=== PATIENT | male | born 1945 | race Caucasian/White ===

== ENCOUNTER 2020-04-01 09:15 | Outpatient (CLI) | payer MEDICARE, SELFPAY ==
--- NOTE | ~2020-04-01 | NM_ITS ---
EXAMINATION: NM bone scan whole body DATE: 04/01/2020 12:56 INDICATION: Prostate cancer. TECHNIQUE: 23.4 mCi Tc-99m HDP was administered intravenously. Delayed whole-body scintigrams were o btained. COMPARISON: CT abdomen and pelvis 04/01/2020 FINDINGS: There is no abnormal focus of increased activity to suggest metastatic disease. IMPRESSION: 1. No evidence of metastatic disease. Reviewed, dictated and finalized at location A. E MAKER
--- NOTE | ~2020-04-01 | CT_ITS ---
EXAMINATION: CT abdomen pelvis w con INDICATION: Prostate cancer TECHNIQUE: Computed tomographic images of the abdomen and pelvis were obtained after the administrati on of 100 cc of Omnipaque 350 intravenous contrast. The dose-length product (DLP) was 794.23 mGy-cm. Automated exposure control and iterative reconstruction technique were employed. COMPARISON: None available FINDINGS: There is a 7 mm subpleural nodule of the left lower lobe on image 38. The heart size is nor mal. The gallbladder is surgically absent. Punctate calcifications in an otherwise normal spleen like ly represent healed granulomatous disease. The liver, pancreas, and adrenal glands are normal. Cysts of the left kidney measure up to 10 mm. The right kidney is unremarkable. There is calcified atherosc lerosis of the aorta and many of the other arteries. No pathologically enlarged abdominal or pelvic l ymph nodes are identified. There is no free intraperitoneal gas or evidence of bowel obstruction. The re is a surgical anastomosis at the rectosigmoid colon. The appendix is normal. A tiny fat-containing umbilical hernia is noted. There are bilateral L5 pars defects with grade 1 anterolisthesis of L5 on S1. IMPRESSION: 1. Indeterminate subpleural nodule of the left lower lobe. 2. No evidence of metastatic disease in the abdomen or pelvis. Reviewed, dictated and finalized at location A. BER HELPER
--- NOTE | ~2020-04-01 | XR_ITS ---
EXAMINATION: XR chest 2V 04/01/2020 09:39 INDICATION: Prostate cancer. PROCEDURE: 2 view chest COMPARISON: No prior studies for comparison. FINDINGS: The lungs are clear. The cardiomediastinal silhouette is within normal limits. There are no pleural effusions. There is no pneumothorax suspected. There is a prominent right nipple shadow right mid lung zone. There are cholecystectomy clips. IMPRESSION: 1: NO ACUTE CARDIOPULMONARY DISEASE. Reviewed, dictated and finalized at location B. RMATION SECURITY DIRECTOR
[2020-04-01 09:48] LABS: Estimated Glomerular Filt Rate 54
== END 2020-04-01 09:16 | disposition home or self-care (01) ==
PROVIDERS: Visit Provider Urology
DX: C61 Malignant neoplasm of prostate (principal)
CPT/HCPCS: 71046; 74177; 78306; A9561; Q9967

== ENCOUNTER → 2020-06-10 01:44 | Outpatient (CLI) | payer MEDICARE, SELFPAY ==
[2020-06-10 19:04] LABS: SARS-CoV-2 RNA PCR Negative
== END ==
PROVIDERS: Visit Provider Urology
DX: Z01.812 Encounter for preprocedural laboratory examination (principal); Z20.822 Contact with and (suspected) exposure to COVID-19
CPT/HCPCS: C9803; U0003; U0005

== ENCOUNTER 2020-06-13 01:48 | Day surgery (SDC) | payer MEDICARE, SELFPAY ==
[2020-05-31 09:38] VITALS: BMI 26.5
--- NOTE | 2020-06-06 07:16 | PM.HPGS ---
History of Present Illness History of Present Illness Consent: Risks, benefits, and alternatives have been discussed and questions answered. Patient agrees to proceed with procedure. Chief complaint: prostate CA Narrative: Nate Metz is a 74 year old male who is a patient of Dr. Yesenia Harvey that recently presented with a PSA of 5.38ng/dl. He was diagnosed with clinically localized adenocarcinoma of the prostate and is scheduled for definitive pelvic IMRT. He's opted for placement of SpaceOAR to minimize risk of rectal irritation. Review of Systems Cardiovascular: Cardiovascular: Denies chest pain, Denies lightheadedness, Denies palpitations and Denies dyspnea Respiratory: Respiratory: Denies dyspnea Gastrointestinal: Gastrointestinal: Denies diarrhea, Denies nausea and Denies vomiting Genitourinary: Genitourinary: Denies hematuria and Denies dysuria Endocrine: Endocrine: Denies palpitations [facility] Social History Social History Smoking packs per day: 1 Smoking cigarettes per day: 20.0 Years smoked: 6 Smoking pack-years: 6.00 Smoking status: Former smoker Tobacco type: cigarettes Smoking end date: 02/22/69 Alcohol intake: current Drinks per week: 7 Spiritual care concerns: No Meds Home Medications and Allergies Home Medications Medication Instructions Recorded Confirmed Type cholecalciferol (vitamin D3) 50 mcg PO DAILY 05/31/20 05/31/20 History finasteride 5 mg PO DAILY 05/31/20 05/31/20 History methylcellulose (with sugar) 1 ea PO DAILY 05/31/20 05/31/20 History [Citrucel Fiber Laxative] omeprazole 40 mg PO DAILY 05/31/20 05/31/20 History Allergies Allergy/AdvReac Type Severity Reaction Status Date / Time pantoprazole [From Protonix] Allergy Unknown Redness of Verified 05/31/20 09:19 Skin Penicillins Allergy Unknown Swelling/RA Verified 05/31/20 09:19 SH Exam Const: General: no acute distress Resp: Effort & Inspection: normal respiratory effort GI: Inspection: non-distended GI Palp: No abdominal tenderness and No Guarding due to palpation present (GI) Auscultation: normal bowel sounds Assessment and Plan Assessment and plan (1) Prostate cancer: Code(s): C61 - Malignant neoplasm of prostate Status: Acute Assessment and Plan: Transrectal ultrasound with transperineal placement of SpaceOAR. Pt. aware of risks of this procedure including, but not limited to, rectal injury, urinary tract infection with possible sepsis or septic shock, hematuria and inability to deliver the SpaceOAR. He also aware there is no alternative procedure to accomplish the same ends at this time.
--- NOTE | 2020-06-12 10:12 | WPDANESEPPF ---
Anes - Initial Pre Proc Eval Procedure: Operation Date: 06/13/20 12:00 Proposed Procedures p Insertion SpaceOAR Hydrogel System - Rashel Harvey MD Date/Time: 06/12/20 10:12 Surgeon: Rashel Harvey MD Pre Op Diagnosis: prostate CA Patient Data Age: 74 Gender: M Height: 1.78 m Weight: 83.95 kg Allergies Allergy/AdvReac Type Severity Reaction Status Date / Time pantoprazole [From Protonix] Allergy Unknown Redness of Verified 05/31/20 09:19 Skin Penicillins Allergy Unknown Swelling/RA Verified 05/31/20 09:19 Home Medications Medication Instructions Recorded Confirmed Type cholecalciferol (vitamin D3) 50 mcg PO DAILY 05/31/20 06/13/20 History finasteride 5 mg PO DAILY 05/31/20 06/13/20 History methylcellulose (with sugar) 1 ea PO DAILY 05/31/20 06/13/20 History [Citrucel Fiber Laxative] omeprazole 40 mg PO DAILY 05/31/20 06/13/20 History Patient hx anesthesia problems: none Family hx anesthesia problems: none PMFSH Past Medical History Medical History (Updated 06/12/20 @ 10:20 by Horacio Clark MD) Arthritis Overweight (BMI 25.0-29.9) Prostate cancer Social History Social History Smoking packs per day: 1 Smoking cigarettes per day: 20.0 Years smoked: 6 Smoking pack-years: 6.00 Smoking status: Former smoker Tobacco type: cigarettes Smoking end date: 02/22/69 Alcohol intake: current Drinks per week: 7 Living arrangements: with family Spiritual care concerns: No Anes - Eval Final PreProcedure Day of Procedure 06/12/20 10:12 Patient weight: overweight Heart: regular rate and rhythm Lungs: clear to auscultation and normal air movement Airway: Mallampati scale class II Neurological: alert and oriented Last oral intake: >/= 8 hours ASA classification: III Emergent: no Anesthetic plan: proceed Anesthesia type and monitoring: general GIVS Informed Consent: The patient's anesthetic plan and its attendant risks and benefits were discussed with the patient/family/POA. Questions were solicited and answers provided to the satisfaction of the patient/family/POA.
[2020-06-13] VITALS (7 sets, daily range): BP systolic 86–144; BP diastolic 57–76; PULSE 49–54; RESP 10–16; TEMP 36.1–36.2; O2SAT 94–100
--- NOTE | 2020-06-13 07:30 | WPDHPUPDATE1 ---
History and Physical Update Update Date/Time: 06/13/20 07:30 History and Physical has been reviewed, including an updated exam of the patient. There are NO changes in the patient's condition. Risks, benefits, and alternatives have been discussed and questions answered. Patient agrees to proceed with procedure.
[2020-06-13] MEDS: LACTATED RINGERS 1,000 ML 30 ML IV CONT ×2 (10:23→14:12)
--- NOTE | 2020-06-13 11:55 | SUR.PREOP ---
Discussed delay of 30 min to 1 hour with patient and . Voiced understanding. No other needs at present.
[2020-06-13] MEDS: ceFAZolin 2 GM/D5W 50 ML 2 GM/50 ML BAG IVPB (13:26)
--- NOTE | 2020-06-13 14:02 | PM.PROC ---
Procedure Note - Detailed Date of procedure: 06/13/20 Pre-op diagnosis: prostate CA Post-op diagnosis: same Procedure performed: Placement SpaceOAR Description of procedure: This patient has been diagnosed with prostate cancer. Patient has met with a radiation oncologist who has prescribed a course of radiation for treatment of the malignancy. Please refer to the Radiation Oncologist's note for radiation method, dose, number of fractions. After discussing with the radiation oncologist and the patient, it has been agreed upon to proceed with SpaceOAR placement. The purpose of SpaceOAR is to reduce rectal irradiation during radiation therapy by placing an absorbable polyethylene glycol (PEG) hydrogel (SpaceOAR) into perirectal fat space, thereby pushing the rectum away from the prostate. Prior to the procedure, a timeout was performed confirming the patient's identity and planned the procedure. Anesthesia was induced without complication. Antibiotics were administered prophylactically, and the patient completed an enema at home prior to the procedure. The patient was positioned in the dorsal lithotomy position. A transrectal ultrasound probe was inserted per rectum with clear visualization of the prostatic base and apex. SpaceOAR hydrogel was prepared as described in the center line cutter operator?s 'Instructions For Use'. Under transrectal ultrasound guidance, a 15 cm 18G needle was inserted, transperineal, through the rectourethralis muscle and the needle tip advanced into the perirectal fat posterior to the prostate. The needle position, and downward bevel, were confirmed in both sagittal and axial camara. 3-5cc of Sterile Saline was used to hydro-dissect the space between the Denonvilliers? fascia and anterior rectal wall. Aspiration did not yield any bleeding. With the needle tip at mid gland, the axial field was viewed to confirm the needle was not in the rectal wall -- movement of the needle tip without corresponding movement of the rectal wall confirmed perirectal placement. The assembled SpaceOAR delivery system was then attached to the 18G needle. Under ultrasound guidance in the sagittal plane, a smooth, continuous injection technique was used to dispense all 10cc of the SpaceOAR hydrogel into the space between the prostate and rectum. Optimal visualization of the needle during hydrogel administration was maintained at all times. An axial measurement of the space between the prostate (mid gland) and rectum immediately post-SpaceOAR injection was noted and measured [10mm]. No suspected penetration or compromise of the rectal wall occurred. Anesthesia: MAC Surgeon: Rashel Harvey MD Estimated blood loss (mL): 0 Drains: No Packing: No Pathology: none sent Complications: No immediate complications Condition: stable Disposition: PACU
--- NOTE | 2020-06-13 14:16 | SUR.PHASEI ---
02 removed at 1415.
== END 2020-06-13 15:10 | disposition home or self-care (01) ==
PROVIDERS: Visit Provider Urology
PROC: (CPT 55874; principal; 2020-06-13 12:00)
DX: C61 Malignant neoplasm of prostate (principal); Z87.891 Personal history of nicotine dependence
CPT/HCPCS: 55874; C1889; J0690; J2250; J2405; J2704; J3010; J7120

== ENCOUNTER 2020-06-21 09:17 | Outpatient (CLI) | payer MEDICARE, SELFPAY ==
--- NOTE | ~2020-06-21 | MR_ITS ---
EXAMINATION: MR pelvis wo/w con DATE: 06/21/2020 11:04 INDICATION: Prostate cancer. TECHNIQUE: Magnetic resonance imaging (MRI) of the pelvis was performed without and with 17 mL MultiH ance intravenous contrast. Sequences included axial and coronal FS FIESTA, coronal T2-weighted FS FSE , axial T2-weighted FSE, axial STIR FSE, coronal and axial LAVA, axial dual-echo T1-weighted FSPGR, a nd axial DWI. Postcontrast sequences included coronal LAVA-flex and a time course of axial LAVA. COMPARISON: CT abdomen and pelvis 04/01/2020 FINDINGS: The prostate is mildly enlarged. There is a 4.9 x 1.4 cm fluid collection between the rectum and pros rodas and involving the anterior wall of the rectum, likely hematoma. Stool distends the rectum. There are no pathologically enlarged lymph nodes. There is no free intraperitoneal fluid. The bladder is m arkedly distended. There is a small left inguinal hernia containing fat. IMPRESSION: 1. Mildly enlarged prostate. No evidence of metastatic disease. 2. 4.9 x 1.4 cm fluid collection between the rectum and prostate and involving the anterior wall the rectum, likely hematoma. Reviewed, dictated and finalized at location A.
[2020-06-21 10:10] LABS: Estimated Glomerular Filt Rate 54
== END 2020-06-21 09:18 | disposition home or self-care (01) ==
PROVIDERS: Visit Provider Radiology Radiation Oncology
DX: C61 Malignant neoplasm of prostate (principal)
CPT/HCPCS: 72197; A9577